=== PATIENT | male | born 1945 | race Caucasian/White ===

== ENCOUNTER 2020-07-05 09:10 | Outpatient (CLI) | payer MEDICARE | END 2020-07-05 09:11 | disposition home or self-care (01) | LOC: CSHWCC 09:10 | PROVIDERS: ATTEND Nurse Practitioner Family | DX: L89.323 Pressure ulcer of left buttock, stage 3 (principal); E11.628 Type 2 diabetes mellitus with other skin complications; I50.33 Acute on chronic diastolic (congestive) heart failure; N18.6 End stage renal disease; R47.02 Dysphasia; I48.91 Unspecified atrial fibrillation; Z85.46 Personal history of malignant neoplasm of prostate; Z86.16 Personal history of COVID-19 | CPT/HCPCS: 97139; G0463; 99203 ==

== ENCOUNTER 2020-07-26 09:43 | Outpatient (CLI) | payer MEDICARE | END 2020-07-26 09:44 | disposition home or self-care (01) | LOC: CSHWCC 09:43 | PROVIDERS: ATTEND Nurse Practitioner Family | DX: L89.323 Pressure ulcer of left buttock, stage 3 (principal); E11.628 Type 2 diabetes mellitus with other skin complications; I48.91 Unspecified atrial fibrillation; I50.33 Acute on chronic diastolic (congestive) heart failure; I51.9 Heart disease, unspecified; N18.6 End stage renal disease; R47.02 Dysphasia; Z85.46 Personal history of malignant neoplasm of prostate; Z86.16 Personal history of COVID-19; E11.22 Type 2 diabetes mellitus with diabetic chronic kidney disease | CPT/HCPCS: 97139; G0463; 99213 ==